=== PATIENT | female | born 1980 | race Caucasian/White ===

== ENCOUNTER 2017-07-28 13:50 | Inpatient (IN) | payer OTHER ==
[~2017-07-28] VITALS: Ht 162.6 cm; Wt 69.3 kg
[2017-07-28 16:00] VITALS: BP 143/82; PULSE 80; RESP 15; TEMP 98.3; O2SAT 94
[2017-07-28 17:00] VITALS: BP 126/70; PULSE 81; RESP 18; TEMP 98.3; O2SAT 94
[2017-07-28 18:00] VITALS: BP 132/77; PULSE 95; RESP 19; TEMP 98.2; O2SAT 95
[2017-07-28] MEDS ORDERED: MORPHINE SULFATE 4 MG/ML INJ IV PUSH PRN (18:00)
[2017-07-28] MEDS ORDERED: SENNOSIDES 8.6 MG TAB PO PRN (18:00)
[2017-07-28] MEDS ORDERED: MAGNESIUM HYDROXIDE SUSP 30 ML CUP PO PRN (18:00)
[2017-07-28] MEDS ORDERED: ONDANSETRON HCL 4 MG/2 ML VIAL IV PUSH PRN (18:00)
[2017-07-28] MEDS ORDERED: ACETAMINOPHEN 325 MG TAB PO PRN (18:00)
[2017-07-28] MEDS ORDERED: DEXTROSE 50% IN WATER 50 ML VIAL(D50) IV PUSH PRN ×2 (18:00→19:30)
[2017-07-28] MEDS ORDERED: GLUCAGON 1 MG/ML VIAL OTHER PRN ×3 (18:00→19:30)
[2017-07-28] MEDS ORDERED: CHLORHEXIDINE GLUCONATE 2 % 1 PACK (2 CLOTHS) TOP PRN (18:00)
[2017-07-28] MEDS ORDERED: BISACODYL 10 MG SUPP RECTAL PRN (18:00)
[2017-07-28] MEDS ORDERED: LACTULOSE SYRUP 20 GM/30 ML CUP PO PRN (18:00)
[2017-07-28] MEDS ORDERED: LABETALOL HCL 100 MG/20 ML VIAL IV PUSH PRN (18:00)
[2017-07-28] MEDS ORDERED: SODIUM CHLORIDE 0.9% FLUSH 10 ML FLUSH IV FLUSH PRN ×3 (18:00→19:30)
[2017-07-28] MEDS: ARTIFICIAL TEARS OPTH SOLN 15 ML BTL EACH EYE SCH (18:00)
[2017-07-28] MEDS ORDERED: NURSING INFORMATION XX SCH (18:00)
[2017-07-28] MEDS ORDERED: niCARdipine INJ 25 MG in SODIUM CHLOR 0.9% 250 ML INJ 240 ML IV PRN (18:00)
[2017-07-28] MEDS: SODIUM CHLOR 0.9% 1000 ML INJ 1,000 ML IV SCH ×2 (18:00→19:24)
[2017-07-28] MEDS ORDERED: RESP: ALBUTEROL 2.5 MG/3 ML NEB (PRN) INH (18:00)
--- NOTE | 2017-07-28 18:03 | RADRPT ---
EXAM DATE/TIME: 07/28/2017 17:50 [facility] COMPARISON: No previous studies available for comparison. INDICATIONS : Stroke alert, right side numbness and right facial droop. RADIATION DOSE: 52.83 CTDIvol (mGy) This report was called by Dr. English to Dr. Franco at 6 PM MEDICAL HISTORY : None SURGICAL HISTORY : None. ENCOUNTER: Initial ACUITY: 1 day PAIN SCALE: 0/10 LOCATION: cranial TECH NOTE: call Dr Franco [phone] TECHNIQUE: Multiple contiguous axial images were obtained of the head. Using automated exposure control and adj ustment of the mA and/or kV according to patient size, radiation dose was kept as low as reasonably a chievable to obtain optimal diagnostic quality images. DICOM format image data is available electro nically for review and comparison. FINDINGS: CEREBRUM: The ventricles are normal for age. No evidence of midline shift, mass lesion, hemorrhage or acute in farction. No extra-axial fluid collections are seen. POSTERIOR FOSSA: The cerebellum and brainstem are intact. The 4th ventricle is midline. The cerebellopontine angle i s unremarkable. EXTRACRANIAL: The visualized portion of the orbits is intact. SKULL: The calvaria is intact. No evidence of skull fracture. CONCLUSION: Negative noncontrast head CT. Artie English MD on July 28, 2017 at 17:59 Board Certified Radiologist. This report was verified electronically.
--- NOTE | 2017-07-28 18:04 | HHI.HP ---
HPI Service Critical Care Medicine Primary Care Physician Unknown Admission Diagnosis Diagnosis: (1) Pineal gland cyst Diagnosis: Principal (2) Facial droop Diagnosis: Principal (3) History of factor V Leiden mutation Diagnosis: Principal Chief Complaint: Right-sided weakness, facial droop Travel History International Travel<30 Days: No Contact w/Intl Traveler <30 Da: No Traveled to Known Affected Are: No History of Present Illness This is a 37-year-old female. Date of admission 07/28/2017. This is a transfer from [facility]. Past history includes pineal cyst and factor V Leiden. She is recently started on cyclobenzaprine 5 mg at night due to right -sided weakness and treat muscle spasms. She originally presented to [facility] with acute onset after waking up this morning of "right-sided weakness along with dizziness, vision changes involving the left lateral vision clements and facial droop. Also complaining of generalized by frontal headaches and neck stiffness. Denies chest pain, abdominal pain, nausea or vomiting. BMP/CBC and coags within normal limits at [facility]. Document the patient presented with intermittent right facial motor dysfunction spasms. Exam revealed intermittent inability to open right eye alternating with normal facial motor exam. CT brain at [facility] revealed pineal cyst 10 mm with no acute findings. MRI was not available for further evaluation plans are made to transfer the patient [facility] Review of Systems Constitutional: DENIES: Fever, Weight gain, Weight loss Endocrine: DENIES: Polydipsia, Polyuria Eyes: COMPLAINS OF: Blurred vision, Vision loss Ears, nose, mouth, throat: DENIES: Tinnitus, Hearing loss Respiratory: DENIES: Apneas Cardiovascular: DENIES: Chest pain Gastrointestinal: DENIES: Abdominal pain Genitourinary: DENIES: Urgency Musculoskeletal: DENIES: Joint pain Integumentary: DENIES: Abnormal pigmentation Hematologic/lymphatic: DENIES: Bruising Immunologic/allergic: DENIES: Eczema Neurologic: COMPLAINS OF: Headache, Localized weakness, Poor Balance, DENIES: Abnormal gait, Seizures Psychiatric: COMPLAINS OF: Confusion, DENIES: Anxiety, Depression Past Family Social History Allergies: Coded Allergies: No Known Allergies (Unverified , 07/28/17) Past Medical History Factor V Leiden Pineal cyst Past Surgical History Appendectomy Reported Medications Cyclobenzaprine 5 mg at night Active Ordered Medications Reviewed in EMR Family History Sister with history of CVA at age 27 with factor V Leiden Social History Denies tobacco, alcohol or illicit drug use Physical Exam Physical Exam GENERAL: 37-year-old female currently resting in bed in no acute distress on room air SKIN: Warm and dry. No rash HEAD: Atraumatic. Normocephalic. EYES: Pupils equal and round about 3 mm bilaterally and reactive. No scleral icterus. No injection or drainage. ENT: No nasal bleeding or discharge. Mucous membranes pink and moist. NECK: Trachea midline. No JVD. CARDIOVASCULAR: Regular rate and rhythm. S1, S2 predose for without murmur RESPIRATORY: Clear to auscultation. Breath sounds equal bilaterally. GASTROINTESTINAL: Abdomen soft, non-tender, nondistended. Hypoactive bowel sounds are appreciated MUSCULOSKELETAL: Extremities without significant peripheral edema. No obvious deformities. NEUROLOGICAL: Awake and alert. Right facial droop. Intermittent expressive aphasia. Right upper extremity strength 4-5. Right lower, left upper and lower extremity 5 out of 5. DTRs essentially 2 out of 4 upper and lowers. Positive pronator drift on right. Dysdiadochokinesis. Gait was noticed muscle strength in the arms and legs. Normal speech. Septic Shock Reassessment Septic shock perfusion: reassessment completed Caprini VTE Risk Assessment Caprini VTE Risk Assessment: Mod/High Risk (score >= 2) Caprini Risk Assessment Model Point Value = 1 Point Value = 2 Point Value = 3 Point Value = 5 Age 41-60 Minor surgery BMI > 25 kg/m2 Swollen legs Varicose veins or History of unexplained or recurrent spontaneous Oral contraceptives or hormone replacement Sepsis (< 1 month) Serious lung disease, including pneumonia (< 1 month) Abnormal pulmonary function Acute myocardial infarction Congestive heart failure (< 1 month) History of inflammatory bowel disease Medical patient at bed rest Age 61-74 Arthroscopic surgery Major open surgery (> 45 min) Laparoscopic surgery (> 45 min) Malignancy Confined to bed (> 72 hours) Immobilizing plaster cast Central venous access Age >= 75 History of VTE Family history of VTE Factor V Leiden Prothrombin [id number] Lupus anticoagulant Anticardiolipin antibodies Elevated serum homocysteine Heparin-induced thrombocytopenia Other congenital or acquired thrombophilia Stroke (< 1 month) Elective arthroplasty Hip, pelvis, or leg fracture Acute spinal cord injury (< 1 month) Prophylaxis Regimen Total Risk Factor Score Risk Level Prophylaxis Regimen 0-1 Low Early ambulation 2 Moderate Order ONE of the following: *Sequential Compression Device (SCD) *Heparin 5000 units SQ BID 3-4 Higher Order ONE of the following medications: *Heparin 5000 units SQ TID *Enoxaparin/Lovenox 40 mg SQ daily (WT < 150 kg, CrCl > 30 mL/min) *Enoxaparin/Lovenox 30 mg SQ daily (WT < 150 kg, CrCl > 10-29 mL/min) *Enoxaparin/Lovenox 30 mg SQ BID (WT < 150 kg, CrCl > 30 mL/min) AND/OR *Sequential Compression Device (SCD) 5 or more Highest Order ONE of the following medications: *Heparin 5000 units SQ TID (Preferred with Epidurals) *Enoxaparin/Lovenox 40 mg SQ daily (WT < 150 kg, CrCl > 30 mL/min) *Enoxaparin/Lovenox 30 mg SQ daily (WT < 150 kg, CrCl > 10-29 mL/min) *Enoxaparin/Lovenox 30 mg SQ BID (WT < 150 kg, CrCl > 30 mL/min) AND *Sequential Compression Device (SCD) Assessment and Plan Assessment and Plan Neuro/Psych: Right facial droop with right upper extremity weakness CT brain/CTA head and neck revealed no acute findings Will order MRI/A brain tonight Stroke alert was called. Awaiting Dr. Franco evaluate for recommendations Holding cyclobenzaprine 5 mg at night/home medication EEG ordered CV: As needed labetalol, nicardipine drip to keep systolic blood pressure less than 220/diastolic pressure less than 120 EKG ordered Echocardiogram/lipid panel ordered Resp: Nasal cannula to maintain saturations greater than equal to 92% Incentive spirometry while awake Chest x-ray ordered GI: Currently n.p.o. Famotidine for GI prophylaxis Docusate sodium/senna 1 tablet twice daily for bowel regimen : No indication for Jorge catheter Endo: Sliding scale insulin to maintain euglycemia/every 6 hours Hemoglobin A1c ordered Renal: Creatinine currently within normal limits Monitor urine output Accurate I's and Os Heme: Factor V Leiden Unknown type. Patient is currently not on any antiplatelet or anticoagulation. Check factor V Leiden ID: Monitor for signs and stigmata of infection MSK: PT/OT/ST evaluate and treat FEN: Currently normal saline 84 cc now. BMP was normal at [facility]. All results are currently pending Access -Utilize peripheral IV. Central line if indicated Prophylaxis -GI -famotidine -DVT -SCD/holding pharmacological prophylaxis until workup complete. Level 3 admission Code Status Full code Discussed Condition With Dr. Franco/neurology. Patient. Care plan discussed and all questions answered. Chris Waddell MD Jul 28, 2017 18:04
[2017-07-28] MEDS ORDERED: IOHEXOL 350 MG/ML 10 ML VIAL (for RAD DIAG) IVCONTRAST ONE (18:12)
[2017-07-28 18:13] LABS: AUTOMATED NEUTROPHIL # 9.6 TH/MM3 (1.8-7.7); BASOPHIL # 0.1 TH/MM3 (0-0.2); BASOPHIL % 0.5 % (0.0-2.0); HEMOGLOBIN 15.7 GM/DL (11.6-15.3); LYMPH % 8.9 % (9.0-44.0); MEAN CELL VOLUME 87.5 FL (80.0-100.0); MEAN CORPUSCULAR HEMOGLOBIN 31.9 PG (27.0-34.0); MEAN PLATELET VOLUME 8.2 FL (7.0-11.0); MONO % 0.7 % (0.0-8.0); MONOCYTE # 0.1 TH/MM3 (0-0.9); NEUT % 89.9 % (16.0-70.0); PLATELET COUNT 317 TH/MM3 (150-450); RED BLOOD COUNT 4.91 MIL/MM3 (4.00-5.30); RED CELL DISTRIBUTION WIDTH 14.7 % (11.6-17.2); WHITE BLOOD COUNT 10.7 TH/MM3 (4.0-11.0)
[2017-07-28 18:19] LABS: MEAN CORPUSCULAR HGB CONC 36.5 % (32.0-36.0)
--- NOTE | 2017-07-28 18:22 | RADRPT ---
EXAM DATE/TIME: 07/28/2017 17:50 [facility] COMPARISON: No previous studies available for comparison. INDICATIONS : Stroke alert, right side numbness and right facial droop. IV CONTRAST: 68 cc Omnipaque 350 (iohexol) IV ; Cumulative dose for multiple exams. RADIATION DOSE: 9.33 CTDIvol (mGy) ; Combined studies MEDICAL HISTORY : None SURGICAL HISTORY : None. ENCOUNTER: Initial ACUITY: 1 day PAIN SCALE: 0/10 LOCATION: neck Elevated flow velocities and ICA/CCA ratios have been found to correlate with increased degrees of vessel stenosis, calculated as percentage of diameter relative to a normal segment of distal ICA/CCA. TECHNIQUE: Volumetric scanning was performed using a multirow detector CT scanner. The data was post processed with a variety of visualization algorithms including full-volume maximum intensity projection, multip lanar sliding thin-slab reformation, curved-planar reformation, and surface-rendering techniques. Us ing automated exposure control and adjustment of the mA and/or kV according to patient size, radiatio n dose was kept as low as reasonably achievable to obtain optimal diagnostic quality images. DICOM f ormat image data is available electronically for review and comparison. FINDINGS: AORTIC ARCH: There is a three-vessel origin of the great vessels from the aorta. No evidence of ostial narrowing. RIGHT CAROTID: The common carotid artery is intact. The carotid bulb has a normal configuration without ulceration o r narrowing. The internal carotid artery lumen is smooth without stenosis. The external carotid vickie ry is intact. LEFT CAROTID: The common carotid artery is intact. The carotid bulb has a normal configuration without ulceration or narrowing. The internal carotid artery lumen is smooth without stenosis. The external carotid ar saniya is intact. VERTEBRALS: The vertebral arteries have a symmetric diameter. No stenotic lesions are seen. CONCLUSION: Normal carotid and vertebral artery CTA. Artie English MD on July 28, 2017 at 18:19 Board Certified Radiologist. This report was verified electronically.
--- NOTE | 2017-07-28 18:23 | RADRPT ---
EXAM DATE/TIME: 07/28/2017 17:50 [facility] COMPARISON: No previous studies available for comparison. INDICATIONS : Stroke alert, right side numbness and right facial droop. IV CONTRAST: 68 cc Omnipaque 350 (iohexol) IV ; Cumulative dose for multiple exams. RADIATION DOSE: 9.33 CTDIvol (mGy) ; Combined studies MEDICAL HISTORY : None SURGICAL HISTORY : None. ENCOUNTER: Initial ACUITY: 1 day PAIN SCALE: 0/10 LOCATION: cranial TECHNIQUE: Volumetric scanning was performed using a multi-row detector CT scanner. The data was post processed with a variety of visualization algorithms including full volume maximum intensity projection, multi -planar sliding thin slab reformation, curved planar reformation, and surface rendering techniques. Using automated exposure control and adjustment of the mA and/or kV according to patient size, radiat ion dose was kept as low as reasonably achievable to obtain optimal diagnostic quality images. DICO M format image data is available electronically for review and comparison. FINDINGS: There is excellent visualization of the major intracranial arteries out to the second-order branch ve ssels. There is no evidence for aneurysm, vessel truncation or stenosis, and no evidence for vascula r malformation. CONCLUSION: No vessel thrombosis or other acute abnormality of the intracranial arteries. Artie English MD on July 28, 2017 at 18:20 Board Certified Radiologist. This report was verified electronically.
[2017-07-28 18:26] LABS: PROTHROMBIN TIME - PATIENT 10.3 SEC (9.8-11.6)
[2017-07-28 18:33] LABS: TROPONIN I LESS THAN 0.02 NG/ML (0.02-0.05)
[2017-07-28 19:00] VITALS: BP 117/75; PULSE 73; RESP 17; TEMP 98.2; O2SAT 93
[2017-07-28] MEDS ORDERED: niCARdipine INJ 25 MG in SODIUM CHLOR 0.9% 250 ML INJ 250 ML IV PRN (19:00)
--- NOTE | 2017-07-28 19:43 | MB ---
cc: Cole Franco MD, PhD DATE: 07/28/2017 REASON FOR CONSULTATION: Stroke alert. HISTORY OF PRESENT ILLNESS: Ms. Bryson is a very nice 37-year-old woman who has a history of factor V gene mutation who also has a history of a pineal cyst which was found last September. She has a history of severe migraine headaches, which have auras, mainly visual auras, but occasionally would develop unilateral tingling. She was transferred from [facility] for the purpose of obtaining an MRI of the brain as she states the MRI unit they was nonfunctional. She began having episodes this morning around 11:00 where she suddenly gets left facial weakness, right-sided weakness as well. They would come and go, lasting 10-15 minutes, then resolve. She has had several of these throughout the course of the day. A stroke alert was therefore called. CURRENT MEDICATIONS: 1. Pepcid. 2. Lipitor. 3. Patt-Colace. 4. Tylenol. 5. Celina. 6. Morphine as needed. NEUROLOGICAL EXAMINATION: VITAL SIGNS: Blood pressure is 132/77, pulse is 95, respiratory rate is 19, temperature 98.2 degrees. HIGHER CORTICAL FUNCTION: Alert, oriented x 3. Speech is normal. CRANIAL NERVES: She has got, at the beginning of this exam, left facial weakness which appeared to be mainly a lower motor neuron process. She is weak in the right side at 4+/5 for the arm and leg. The extraocular movements are intact, including vertical gaze and upgaze. Pupils equal and reactive. Tongue protrudes midline. Facial sensation normal. Speech is slightly dysarthric. Reflexes are symmetric. These symptoms did resolve throughout the course of the exam. DIAGNOSTIC STUDIES: She did have a CT of the brain: No acute changes present. I did review this as in the low area of attenuation about the tectum, probably related to the cyst. She has a CTA of the head which is normal. No thrombosis. The basilar artery, particularly was normal. Neck CTA was also normal. LABORATORY DATA: The white count is 10,700; hemoglobin 15.7; hematocrit 43%; platelet count 317,000. The PT is 10.3, INR 1, aPTT 26.5. Sodium is 138, potassium 4.3, chloride 103. The BUN is less than 3, creatinine 0.7, glucose 134. CPK is 60. Beta hCG less than 1. IMPRESSION: Episodic symptoms which are referable to the brainstem area with left facial weakness, right-sided weakness. This may be neurologic migraine such as basilar artery migraine. Alternatively crescendo transient ischemic attacks are possible, especially with her history of factor V Leiden gene mutation. The other possibility would be the pineal cyst exerting intermittent pressure; however, I think this would be less likely. She does not have any findings suggestive of Parinaud's syndrome and she has preserved upgaze, which would be against significant pressure of the cyst on the tectum. RECOMMENDATION: I would like to start the patient on IV heparin because of her factor V Leiden gene mutation for the possibility of TIA, also start antimigraine therapy with gabapentin. I would also like to get a stat brain MRI to be sure the cyst is not putting pressure on the brainstem, although for the reasons above, I think this would be a less likely etiology, although needs to be ruled out. Cole Franco MD, PhD IVETTE/ALEX , 07:24 PM , 07:42 PM
[2017-07-28 20:00] VITALS: BP 117/63; PULSE 74; RESP 13; TEMP 97.5; O2SAT 93
[2017-07-28] MEDS: SODIUM CHLORIDE 0.9% FLUSH 10 ML FLUSH IV FLUSH SCH ×3 (21:00)
[2017-07-28] MEDS ORDERED: INSULIN ASPART SUPPLEMENTAL SCALE SQ SCH ×2 (21:00)
[2017-07-28] MEDS ORDERED: GADODIAMIDE PF 287 MG/ML 5 ML VIAL (for RAD MRI) IVCONTRAST ONE (21:31)
[2017-07-28 22:00] VITALS: BP 113/62; PULSE 72; RESP 19; TEMP 97.6; O2SAT 95
--- NOTE | 2017-07-28 22:25 | RADRPT ---
EXAM DATE/TIME: 07/28/2017 21:21 [facility] COMPARISON: No previous studies available for comparison. INDICATIONS : Pineal cyst, possible brainstem compression. CONTRAST: 13 cc Omniscan (gadodiamide) IV MEDICAL HISTORY : Factor 5, Pineal cyst. SURGICAL HISTORY : Tubal ligation. Appendectomy. Right hand sx. ENCOUNTER: Initial ACUITY: 1 day PAIN SCORE: 4/10 LOCATION: Bilateral cranial TECHNIQUE: Multiplanar, multisequence MRI of the brain was performed both prior to and following the administrat ion of paramagnetic contrast. FINDINGS: CEREBRUM: Nonenhancing thin-walled midline cyst posterior to the tectum and in between the mammary bodies noted , measures 12 x 15 x 18 mm in size. There is no signal abnormalities or perceptible significant mass effect on adjacent structures. The ventricles are normal. No evidence of midline shift, solid mass le ruddy, hemorrhage or acute infarction. No extraaxial fluid collections are seen. The pituitary gland and suprasellar cistern are normal in configuration. WHITE MATTER: No significant signal abnormalities are seen in the white matter. POSTERIOR FOSSA: The cerebellum and brainstem are intact. The 4th ventricle is midline. The cerebellopontine angle is unremarkable. The cerebellar tonsils are normal in position. DIFFUSION IMAGING: No focal areas of restricted diffusion are seen. No evidence of acute infarction. EXTRACRANIAL: The visualized portions of the orbits and paranasal sinuses are unremarkable. POST-CONTRAST: No abnormal areas of parenchymal or dural enhancement. No evidence of blood-brain barrier breakdown. CONCLUSION: 1. No bleed, acute infarct or other acute intracranial abnormality. 2. Thin-walled benign-appearing pineal cyst without signal changes or significant mass effect on zohra cent structures. This is thought to be acutely noncontributory. The lesion does warrant surveillance however, and a 6 month followup brain MRI is suggested. Artie English MD on July 28, 2017 at 22:13 Board Certified Radiologist. This report was verified electronically.
[2017-07-28] MEDS: INSULIN ASPART SUPPLEMENTAL SCALE SQ SCH (22:30)
[2017-07-28] MEDS: DOCUSATE SODIUM 50 MG/SENNA 8.6 MG TAB PO SCH (22:30)
[2017-07-28] MEDS: FAMOTIDINE 20 MG/2 ML VIAL IV PUSH SCH (22:30)
[2017-07-28] MEDS: GABAPENTIN 300 MG CAP PO SCH (22:30)
[2017-07-28] MEDS: ATORVASTATIN 10 MG TAB PO SCH (22:30)
[2017-07-28] MEDS: DEXAMETHASONE SOD PHOS 4 MG/ML VIAL IV PUSH SCH (22:30)
[2017-07-29] VITALS (13 sets, daily range): BP systolic 105–131; BP diastolic 58–67; PULSE 54–85; RESP 14–23; TEMP 97.4–98.2; O2SAT 93–99
[2017-07-29] MEDS: HEPARIN-D5W 25,000 U/250 ML 250 ML IV PRN ×2 (00:09→23:46)
[2017-07-29] MEDS: CHLORHEXIDINE GLUCONATE 2 % 1 PACK (2 CLOTHS) TOP SCH (04:00)
[2017-07-29] MEDS: DEXAMETHASONE SOD PHOS 4 MG/ML VIAL IV PUSH SCH ×3 (06:06→21:56)
[2017-07-29] MEDS: SODIUM CHLOR 0.9% 1000 ML INJ 1,000 ML IV SCH ×3 (06:07→17:30)
--- NOTE | 2017-07-29 07:27 | HHI.PR ---
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 She has history of factor 5 leiden gene mutation she states only at one allele. Plan continue iv heparin for now as well as migraine therapy (gapapentin, steroids) consult hematology regarding history of factor 5 leiden. Will also check full hypercoag panel MRV brain to be sure is no venous sinus thrombosis consult neurosurgery regarding pineal cyst. Diagnosis/Plan: Subjective Subjective Comments No acute events reported She states she had had no further episodes of left face and right hemibody weakness since heparin started Active Medications Current Medications Medications (Trade) Dose Ordered Sig/Lora Route Start Time Stop Time Status Last Admin Sodium Chloride 1,000 ml @ 84 mls/hr [id number] IV 07/28/17 17:49 07/29/17 06:07 (NS Flush) 2 ml UNSCH PRN IV FLUSH 07/28/17 18:00 (NS Flush) 2 ml BID IV FLUSH 07/28/17 21:00 07/28/17 21:00 (Tylenol) 650 mg Q6H PRN PO 07/28/17 18:00 (Joanna 5-325 Mg) 1 tab Q4H PRN PO 07/28/17 18:00 (Morphine Inj) 2 mg Q2H PRN IV PUSH 07/28/17 18:00 (Pepcid Inj) 20 mg Q12HR IV PUSH 07/28/17 21:00 07/28/17 22:30 (Tears Naturale Opth Soln) 1 drop TID EACH EYE 07/28/17 18:00 (Zofran Inj) 4 mg Q6H PRN IV PUSH 07/28/17 18:00 (Albuterol Neb) 2.5 mg Q2HR NEB PRN INH 07/28/17 18:00 ([facility] Information) 1 [id number] XX 07/28/17 18:00 07/28/17 21:00 (Chlorhexidine 2% Cloth) 3 pack Taper DAILY@04 TOP 07/29/17 04:00 07/25/18 03:59 (Chlorhexidine 2% Cloth) 3 pack UNSCH PRN TOP 07/28/17 18:00 (Patt-Colace) 1 tab BID PO 07/28/17 21:00 07/28/17 22:30 (Milk Of Magnesia Liq) 30 ml Q12H PRN PO 07/28/17 18:00 (Senokot) 17.2 mg Q12H PRN PO 07/28/17 18:00 (Dulcolax Supp) 10 mg DAILY PRN RECTAL 07/28/17 18:00 (Lactulose Liq) 30 ml DAILY PRN PO 07/28/17 18:00 (Trandate Inj) 10 mg Q2H PRN IV PUSH 07/28/17 18:00 (Lipitor) 10 mg HS PO 07/28/17 21:00 07/28/17 22:30 Nicardipine HCl 25 mg/Sodium Chloride 260 ml @ 50 mls/hr TITRATE PRN IV 07/28/17 19:00 (NS Flush) 2 ml BID IV FLUSH 07/28/17 21:00 (NS Flush) 2 ml UNSCH PRN IV FLUSH 07/28/17 19:30 Sodium Chloride 1,000 ml @ 70 mls/hr [id number] IV 07/28/17 19:24 (NovoLOG SUPPLEMENTAL SCALE) 1 ACHS SQ 07/28/17 21:00 (D50w (Vial) Inj) 50 ml UNSCH PRN IV PUSH 07/28/17 19:30 (Glucagon Inj) 1 mg UNSCH PRN OTHER 07/28/17 19:30 (NS Flush) 2 ml BID IV FLUSH 07/28/17 21:00 (NS Flush) 2 ml UNSCH PRN IV FLUSH 07/28/17 19:30 (D50w (Vial) Inj) 50 ml UNSCH PRN IV PUSH 07/28/17 19:30 (Glucagon Inj) 1 mg UNSCH PRN OTHER 07/28/17 19:30 Heparin Sodium/ Dextrose 250 ml @ 8 mls/hr TITRATE PRN IV 07/28/17 19:30 07/29/17 00:09 (Neurontin) 300 mg BID PO 07/28/17 21:00 07/28/17 22:30 (Decadron Inj) 4 mg Q8HR IV PUSH 07/28/17 22:00 07/29/17 06:06 Allergies Allergies Coded Allergies No Known Allergies (Unverified07/28/17) Exam I&O / VS Vital Signs Date Time Temp Pulse Resp B/P (MAP) Pulse Ox O2 Delivery O2 Flow Rate FiO2 07/29/17 06:00 58 07/29/17 04:00 97.4 60 16 107/59 (75) 96 07/29/17 04:00 68 07/29/17 02:00 60 07/29/17 00:00 60 07/29/17 00:00 97.7 60 19 109/62 (78) 94 07/28/17 22:00 97.6 72 19 113/62 (79) 95 07/28/17 22:00 72 07/28/17 20:00 74 07/28/17 20:00 97.5 74 13 117/63 (81) 93 07/28/17 19:00 98.2 73 17 117/75 (89) 93 07/28/17 18:00 98.2 95 19 132/77 (95) 95 07/28/17 18:00 95 07/28/17 17:00 81 07/28/17 17:00 98.3 81 18 126/70 (88) 94 07/28/17 16:00 98.3 80 15 143/82 (102) 94 Exam Comments alert, speech normal Cn normal--no facial weakness MOTOR----5/5 BUE and BLE. no drift. Objective Radiology Results MRI brain-large pineal cyst without compression of tectum Micro and Labs Laboratory Tests Test 07/28/17 17:47 White Blood Count 10.7 Red Blood Count 4.91 Hemoglobin 15.7 Bedside Hemoglobin 15.6 Hematocrit 43.0 Bedside Hematocrit 46.0 Mean Corpuscular Volume 87.5 Mean Corpuscular Hemoglobin 31.9 Mean Corpuscular Hemoglobin Concent 36.5 Red Cell Distribution Width 14.7 Platelet Count 317 Mean Platelet Volume 8.2 Neutrophils (%) (Auto) 89.9 Lymphocytes (%) (Auto) 8.9 Monocytes (%) (Auto) 0.7 Eosinophils (%) (Auto) 0.0 Basophils (%) (Auto) 0.5 Neutrophils # (Auto) 9.6 Lymphocytes # (Auto) 1.0 Monocytes # (Auto) 0.1 Eosinophils # (Auto) 0.0 Basophils # (Auto) 0.1 CBC Comment AUTO DIFF Differential Comment FINAL DIFF MANUAL Platelet Estimate NORMAL Platelet Morphology Comment ENLARGED Prothrombin Time 10.3 Prothromb Time International Ratio 1.0 Activated Partial Thromboplast Time 26.5 Fibrinogen 367 Bedside Sodium 138 Bedside Potassium 4.3 Bedside Chloride 103 Bedside Blood Urea Nitrogen LESS THAN 3 Bedside Creatinine 0.7 Bedside Glucose 134 Total Creatine Kinase 60 Troponin I LESS THAN 0.02 Human Chorionic Gonadotropin, Quant LESS THAN 1 Cole Franco MD PhD Jul 29, 2017 07:27
--- NOTE | 2017-07-29 07:30 | HHI.CCPN ---
Subjective Remarks/Hospital Course This is a 37-year-old female. Date of admission 07/28/2017. This is a transfer from [facility]. Past history includes pineal cyst and factor V Leiden. She is recently started on cyclobenzaprine 5 mg at night due to right -sided weakness and treat muscle spasms. She originally presented to [facility] with acute onset after waking up this morning of "right-sided weakness along with dizziness, vision changes involving the left lateral vision clements and facial droop. Also complaining of generalized by frontal headaches and neck stiffness. Denies chest pain, abdominal pain, nausea or vomiting. BMP/CBC and coags within normal limits at [facility]. Document the patient presented with intermittent right facial motor dysfunction spasms. Exam revealed intermittent inability to open right eye alternating with normal facial motor exam. CT brain at [facility] revealed pineal cyst 10 mm with no acute findings. MRI was not available for further evaluation plans are made to transfer the patient [facility] 07/29: No acute events overnight, patient reports no right-sided weakness after IV heparin had been started. Discussed with neurology Dr. Franco. he has requested hematology and N/S input. Pineal cyst measures measures 12 x 15 x 18 mm in size, no mass-effect. MRV ordered by neurology Objective Vital Signs Date Time Temp Pulse Resp B/P (MAP) Pulse Ox O2 Delivery O2 Flow Rate FiO2 07/29/17 06:00 58 07/29/17 04:00 97.4 16 107/59 (37) 96 Result Diagram: 07/28/17 6722 Objective Remarks GENERAL: 37-year-old female currently resting in bed in no acute distress on room air SKIN: Warm and dry. No rash HEAD: Atraumatic. Normocephalic. EYES: Pupils equal and round about 3 mm bilaterally and reactive. No scleral icterus. No injection or drainage. ENT: No nasal bleeding or discharge. Mucous membranes pink and moist. NECK: Trachea midline. No JVD. CARDIOVASCULAR: Regular rate and rhythm. S1, S2 normal without murmur RESPIRATORY: Clear to auscultation. Breath sounds equal bilaterally. GASTROINTESTINAL: Abdomen soft, non-tender, nondistended. Hypoactive bowel sounds are appreciated MUSCULOSKELETAL: Extremities without significant peripheral edema. No obvious deformities. NEUROLOGICAL: Awake and alert. No facial droop. No expressive aphasia today. Normal muscle strength bilateral ext. DTRs essentially 2 out of 4 upper and lowers. No Dysdiadochokinesis. Normal speech. A/P Assessment and Plan Neuro/Psych: Right facial droop with right upper extremity weakness, now resolved TIA vs Complicated migraine CT brain/CTA head and neck revealed no acute findings MRI brain showed pineal cyst measures 12 x 15 x [address] Franco has consulted neurosurgery, MRV also ordered Stroke alert was called. Was beyond TPA window. IV heparin started by Dr. Franco due to factor V Leyden mutation On Neurontin and IV Decadron per Dr. Franco for complicated migraine Holding cyclobenzaprine 5 mg at night/home medication EEG ordered, pending CV: As needed labetalol, nicardipine drip to keep systolic blood pressure less than 220/diastolic pressure less than 120 Echocardiogram/lipid panel ordered Resp: Nasal cannula to maintain saturations greater than equal to 92% Incentive spirometry while awake Chest x-ray ordered GI: Currently n.p.o. Start regular diet Famotidine for GI prophylaxis Docusate sodium/senna 1 tablet twice daily for bowel regimen : No indication for Jorge catheter Endo: Sliding scale insulin to maintain euglycemia/every 6 hours Hemoglobin A1c ordered Renal: Creatinine currently within normal limits Monitor urine output Accurate I's and Os Heme: Factor V Leiden mutation Unknown type. Patient is currently not on any antiplatelet or anticoagulation. F/u factor V Leiden IV heparin started by Dr. Franco, hematology consulted, await recommendation ID: Monitor for signs and stigmata of infection MSK: PT/OT/ST evaluate and treat FEN: Currently normal saline 84 cc now. BMP was normal at [facility]. Access -Utilize peripheral IV. Central line if indicated Prophylaxis -GI -famotidine -DVT -SCD/IV heparin Level 3 Geovani Alva MD Jul 29, 2017 07:30
[2017-07-29] MEDS: INSULIN ASPART SUPPLEMENTAL SCALE SQ SCH ×4 (08:00→21:00)
[2017-07-29 08:07] LABS: AUTOMATED NEUTROPHIL # 6.5 TH/MM3 (1.8-7.7); BASOPHIL # 0.1 TH/MM3 (0-0.2); BASOPHIL % 1.1 % (0.0-2.0); HEMATOCRIT 40.3 % (35.0-46.0); HEMOGLOBIN 13.9 GM/DL (11.6-15.3); LYMPH % 16.5 % (9.0-44.0); LYMPHOCYTE # 1.3 TH/MM3 (1.0-4.8); MEAN CELL VOLUME 86.6 FL (80.0-100.0); MEAN CORPUSCULAR HEMOGLOBIN 29.8 PG (27.0-34.0); MEAN CORPUSCULAR HGB CONC 34.4 % (32.0-36.0); MEAN PLATELET VOLUME 8.4 FL (7.0-11.0); MONO % 2.7 % (0.0-8.0); MONOCYTE # 0.2 TH/MM3 (0-0.9); NEUT % 79.7 % (16.0-70.0); PLATELET COUNT 308 TH/MM3 (150-450); RED BLOOD COUNT 4.65 MIL/MM3 (4.00-5.30); WHITE BLOOD COUNT 8.2 TH/MM3 (4.0-11.0)
[2017-07-29 08:13] LABS: PROTHROMBIN TIME - PATIENT 10.4 SEC (9.8-11.6)
[2017-07-29 08:26] LABS: ALBUMIN 3.3 GM/DL (3.4-5.0); AST (GOT) 12 U/L (15-37); BICARBONATE 21.4 MEQ/L (21.0-32.0); BLOOD UREA NITROGEN 7 MG/DL (7-18); CHLORIDE 106 MEQ/L (98-107); CREATININE 0.67 MG/DL (0.50-1.00); GLOMERULAR FILTRATION RATE 100 ML/MIN (>89); GLUCOSE,RANDOM 123 MG/DL (74-106); MAGNESIUM 1.8 MG/DL (1.5-2.5); SODIUM (NA) 139 MEQ/L (136-145)
[2017-07-29 08:28] LABS: ALT (GPT) 21 U/L (10-53); CHOLESTEROL 200 MG/DL (120-200); PHOSPHORUS 2.9 MG/DL (2.5-4.9); TRIGLYCERIDES 107 MG/DL (42-150)
[2017-07-29 08:30] LABS: ALKALINE PHOSPHATASE 60 U/L (45-117); CHOLESTEROL/ HDL RATIO 6.04 RATIO; HDL CHOLESTEROL 33.1 MG/DL (40.0-60.0); LDL CHOLESTEROL 146 MG/DL (0-99); TOTAL BILIRUBIN ADULT 0.4 MG/DL (0.2-1.0); TOTAL PROTEIN 7.2 GM/DL (6.4-8.2)
[2017-07-29] MEDS: SODIUM CHLORIDE 0.9% FLUSH 10 ML FLUSH IV FLUSH SCH ×6 (09:00→21:00)
[2017-07-29] MEDS: ARTIFICIAL TEARS OPTH SOLN 15 ML BTL EACH EYE SCH ×3 (10:23→17:30)
[2017-07-29] MEDS: FAMOTIDINE 20 MG/2 ML VIAL IV PUSH SCH (10:23)
[2017-07-29] MEDS: DOCUSATE SODIUM 50 MG/SENNA 8.6 MG TAB PO SCH ×2 (10:23→21:54)
[2017-07-29] MEDS: GABAPENTIN 300 MG CAP PO SCH ×2 (10:23→21:54)
[2017-07-29 10:58] LABS: HEMOGLOBIN A1C 5.7 % (4.3-6.0)
--- NOTE | 2017-07-29 12:29 | MB ---
cc: Thanh ARROYO DATE: 07/29/2017 CHIEF COMPLAINT: Pineal cyst. HISTORY OF PRESENT ILLNESS: This is a 37-year-old female patient admitted to the intensive care unit because of a possible TIA. The patient has a history of factor V gene mutation and previous history of pineal cyst. The patient has been complaining of severe headaches which have been diagnosed as migrainous in the past with visual auras. She was seen at [facility] because of continued headaches and she was also noted to have some facial weakness and right-sided weakness and because of this, she was transferred to this facility to undergo MRI of the brain and further evaluation. Presently, the patient reports that she is doing well. She reports that she has been evaluated previously for a pineal cyst and seen several neurosurgeons. She has also been evaluated for her continued symptoms of tingling in the extremities and these visual auras and has seen various neurologists in the past. Neurosurgical consult was placed because of the pineal cyst. ALLERGIES: SHE HAS NO KNOWN ALLERGIES. PREVIOUS MEDICAL HISTORY: Reveals a factor V Leiden factor and pineal cyst. PAST SURGICAL HISTORY: Includes appendectomy. MEDICATIONS: Include cyclobenzaprine at night. FAMILY HISTORY: Positive for a sister with history of a stroke at the age of 27 because of her factor V. SOCIAL HISTORY: Reveals that she denies use of tobacco, alcohol or illicit drug use. PHYSICAL EXAMINATION: VITAL SIGNS: Blood pressure of 115/67, respiratory rate of 23, pulse of 79, temperature of 97.9 and pulse oximetry of 93. HEENT: Unremarkable. NECK: Supple with carotid pulses bilaterally. CHEST: Symmetric. LUNGS: Clear. HEART: Shows a regular rhythm with normal heart sounds. ABDOMEN: Soft. EXTREMITIES: Clear. NEUROLOGIC: She is alert and awake. She follows commands well. Speech is clear. She is oriented x 3. Her affect appears to be normal. She tends to grimace on the right side of the face. Cranial nerves 2-12 are intact. Motor exam is 5+/5. Sensory system is intact to touch. Deep tendon reflexes are 1+. IMAGING STUDIES: Review of an MRI of the brain showed what appears to be a pineal cyst about 1 cm. No significant pressure on the adjacent structures are seen. Previous MRI were also reviewed, appear to be of similar symmetry. OVERALL IMPRESSION: That of a benign pineal cyst. I do not believe that her present symptomatology is related to the cyst at the present time, RECOMMENDATIONS: There is no clear need for surgical intervention for the pineal cyst. She should be followed by neurology because of her symptoms and possible complicated migraines. Thanh BARBER/ALEX , 11:57 AM , 12:28 PM [email or web address]
[2017-07-29] MEDS ORDERED: GADODIAMIDE PF 287 MG/ML 20 ML VIAL (for RAD MRI) IVCONTRAST ONE (14:19)
--- NOTE | 2017-07-29 14:36 | RADRPT ---
EXAM DATE/TIME: 07/29/2017 13:48 COMPARISON: MRI BRAIN W & W/O CONTRAST, July 28, 2017, 21:21. INDICATIONS : Venous sinus thrombosis CONTRAST: 20 cc Omniscan (gadodiamide) IV MEDICAL HISTORY : Factor 5 SURGICAL HISTORY : Tubal ligation. Appendectomy. ENCOUNTER: Initial ACUITY: 1 day PAIN SCORE: 0/10 LOCATION: cranial FINDINGS: The main dural sinuses are all patent. No thrombus is seen. CONCLUSION: No venous dural sinus thrombosis. Artie Zamarripa MD on July 29, 2017 at 14:31 Board Certified Radiologist. This report was verified electronically.
--- NOTE | 2017-07-29 19:09 | MG ---
cc: Cole Franco MD, PhD Cole Franco MD PhD TEST #[id number] TECHNIQUE: This is a 21-channel EEG. DESCRIPTION: Background rhythm reveals a symmetrical alpha rhythm. Frequency is 8-10 Hz, amplitude is 20-30 microvolts. During drowsiness, there is mild slowing in the theta range. There is some sleep activity identified in terms of vertex sharp waves and sleep spindles are present. There are no epileptiform features. Activation was not performed. INTERPRETATION: Normal electroencephalogram in both the awake and sleep state. Cole Franco MD, PhD IVETTE/ , 06:51 PM , 07:08 PM
[2017-07-29] MEDS: ATORVASTATIN 10 MG TAB PO SCH (21:54)
[2017-07-29] MEDS: FAMOTIDINE 20 MG TAB PO SCH (21:54)
[2017-07-30] VITALS (10 sets, daily range): BP systolic 111–124; BP diastolic 65–70; PULSE 47–83; RESP 12–29; TEMP 97.7–98; O2SAT 94–100
[2017-07-30] MEDS: CHLORHEXIDINE GLUCONATE 2 % 1 PACK (2 CLOTHS) TOP SCH (04:00)
[2017-07-30] MEDS: SODIUM CHLOR 0.9% 1000 ML INJ 1,000 ML IV SCH ×3 (05:34→10:49)
[2017-07-30] MEDS: DEXAMETHASONE SOD PHOS 4 MG/ML VIAL IV PUSH SCH (05:39)
--- NOTE | 2017-07-30 07:42 | MB ---
cc: Susanna Sanchez MD DATE: 07/29/2017 CHIEF COMPLAINT: 1. Possible stroke. 2. History of heterozygous factor V Leiden. 3. Hypercoagulable workup. HISTORY OF PRESENT ILLNESS: Ms. Bryson is a 37-year-old lady with a history of pineal cyst and factor V Leiden heterozygosity who was admitted to the hospital on 07/28/2017 as a transfer from [facility] in [place]. She had noticed right-sided facial droop and right-sided weakness, as well as left lateral vision clements changes. She also developed frontal headache and neck stiffness. She was transferred to [facility] for further evaluation and management. She has been evaluated by the neurology service as well as the neurosurgery service. Head imaging includes a neck CTA, which revealed normal carotid and vertebral arteries. Head CTA which showed no vessel thrombosis or other acute abnormality of the intracranial arteries. Head CT with negative noncontrasted CT. Brain MRI with no bleed, acute infarct or other acute intracranial abnormality. Thin wall benign appearing pineal cyst without significant changes or significant mass effect from adjacent structures. This is thought to be acutely noncontributory. The lesion does warrant surveillance and the radiologist recommended a month followup brain MRI. Head MR venography showed no venous dural sinus thrombosis. Laboratory studies with a creatinine of 0.67, a total bilirubin 0.4, AST 12, ALT 21, alkaline phosphatase is 60, total protein is 7.2 and albumin is 3.3. White blood cell count 8.2, hemoglobin is 13.9, and platelet count is 308,000 with a normal differential. Neurosurgery service consulted for further recommendations on further management of pineal cyst and they already said that there is no clear need for surgical intervention and that the pineal cyst is likely not the cause of her current symptoms. All other ROS negative. PAST MEDICAL HISTORY: 1. Pineal cyst. 2. Heterozygous Factor V Leiden. PAST SURGICAL HISTORY: 1. Appendectomy. 2. Tubal ligation. 3. Right index finger reattachment after an accident. SOCIAL HISTORY: The patient is an active smoker. She has smoked 1-1/2 packs a day for many years. She has past heavy alcohol use; however, she has using any alcohol in the past several years. She has a good support system with family. FAMILY HISTORY: She reports a significant family history of stroke and vascular disease. She reports that her sister had a stroke at age 27 and at that point in time, her sister was found to be heterozygous for factor V Leiden. She also reports that at the time of her stroke her sister was obese, on control with active tobacco abuse as well. ALLERGIES: SHE DENIES ANY ALLERGIES. HOME MEDICATIONS: She denies any home medications. PHYSICAL EXAMINATION: GENERAL: Well-developed, well-nourished lady, in no distress. NECK: Supple with no palpable lymphadenopathy. CARDIOVASCULAR: Regular rate and rhythm, no murmurs. RESPIRATORY: Clear to auscultation bilaterally. ABDOMEN: Soft, nontender, nondistended. Bowel sounds present. EXTREMITIES: No edema. PSYCHIATRIC: Appropriate mood and affect. NEUROLOGIC: Within some slight drooping of the right side of the face. ASSESSMENT AND PLAN: Possible transient ischemic attack and stroke with no abnormalities that are present in the vasculature of the neck and the brain upon imaging. She has already had a hypercoagulable workup ordered including evaluation for factor V Leiden mutation, protein C activity, protein S activity, antiphospholipid antibody panel. For completeness , we will also order prothrombin gene mutation as well as antithrombin III activity. The patient reports in the past that she has been diagnosed with factor V Leiden heterozygosity. Studies have indicated no statistically significant increased risk of arterial thromboembolism in factor V Leiden carriers compared with noncarriers. No association has been found between factor V Leiden and arterial thromboembolic events have been shown. In these meta analyses, she majority of the patient's are heterozygotes. At this point in time, the finding of heterozygous factor V Leiden mutation in a patient with an unexplained arterial thrombotic disease should not lead to any treatment changes from standard therapy and the patient experiencing a noncardiogenic thrombotic event. If the neurology service deems it so, antiplatelet therapy would be the appropriate choice in this patient. Thank you for this consultation. Inpatient hematology service will continue to follow. MD HOWARD Carrington/ALEX , 05:44 AM , 07:41 AM DEVYN
--- NOTE | 2017-07-30 07:58 | HHI.PR ---
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 Plan stop iv heparin and start aspirin 325 mg daily increase gabapentin for migraine stop decadron. Diagnosis/Plan: Subjective Subjective Comments No acute events reported Pt has had intermittent left facial weakness throughout yesterday but no right hemiparesis Neurosurgery and hematology consults appreciated Active Medications Current Medications Medications (Trade) Dose Ordered Sig/Lora Route Start Time Stop Time Status Last Admin Sodium Chloride 1,000 ml @ 84 mls/hr [id number] IV 07/28/17 17:49 07/30/17 05:34 (NS Flush) 2 ml UNSCH PRN IV FLUSH 07/28/17 18:00 (NS Flush) 2 ml BID IV FLUSH 07/28/17 21:00 07/29/17 21:00 (Tylenol) 650 mg Q6H PRN PO 07/28/17 18:00 (Randolph 5-325 Mg) 1 tab Q4H PRN PO 07/28/17 18:00 (Morphine Inj) 2 mg Q2H PRN IV PUSH 07/28/17 18:00 (Tears Naturale Opth Soln) 1 drop TID EACH EYE 07/28/17 18:00 07/29/17 17:30 (Zofran Inj) 4 mg Q6H PRN IV PUSH 07/28/17 18:00 (Albuterol Neb) 2.5 mg Q2HR NEB PRN INH 07/28/17 18:00 ([facility] Nursing Information) 1 [id number] XX 07/28/17 18:00 07/28/17 21:00 (Chlorhexidine 2% Cloth) 3 pack Taper DAILY@04 TOP 07/29/17 04:00 07/25/18 03:59 (Chlorhexidine 2% Cloth) 3 pack UNSCH PRN TOP 07/28/17 18:00 (Patt-Colace) 1 tab BID PO 07/28/17 21:00 07/29/17 21:54 (Milk Of Magnesia Liq) 30 ml Q12H PRN PO 07/28/17 18:00 (Senokot) 17.2 mg Q12H PRN PO 07/28/17 18:00 (Dulcolax Supp) 10 mg DAILY PRN RECTAL 07/28/17 18:00 (Lactulose Liq) 30 ml DAILY PRN PO 07/28/17 18:00 (Trandate Inj) 10 mg Q2H PRN IV PUSH 07/28/17 18:00 (Lipitor) 10 mg HS PO 07/28/17 21:00 07/29/17 21:54 Nicardipine HCl 25 mg/Sodium Chloride 260 ml @ 50 mls/hr TITRATE PRN IV 07/28/17 19:00 (NS Flush) 2 ml BID IV FLUSH 07/28/17 21:00 (NS Flush) 2 ml UNSCH PRN IV FLUSH 07/28/17 19:30 Sodium Chloride 1,000 ml @ 70 mls/hr [id number] IV 07/28/17 19:24 (NovoLOG SUPPLEMENTAL SCALE) 1 ACHS SQ 07/28/17 21:00 (D50w (Vial) Inj) 50 ml UNSCH PRN IV PUSH 07/28/17 19:30 (Glucagon Inj) 1 mg UNSCH PRN OTHER 07/28/17 19:30 (NS Flush) 2 ml BID IV FLUSH 07/28/17 21:00 (NS Flush) 2 ml UNSCH PRN IV FLUSH 07/28/17 19:30 (D50w (Vial) Inj) 50 ml UNSCH PRN IV PUSH 07/28/17 19:30 (Glucagon Inj) 1 mg UNSCH PRN OTHER 07/28/17 19:30 Heparin Sodium/ Dextrose 250 ml @ 8 mls/hr TITRATE PRN IV 07/28/17 19:30 07/29/17 23:46 (Neurontin) 300 mg BID PO 07/28/17 21:00 07/29/17 21:54 (Decadron Inj) 4 mg Q8HR IV PUSH 07/28/17 22:00 07/30/17 05:39 (Pepcid) 20 mg BID PO 07/29/17 21:00 07/29/17 21:54 Allergies Allergies Coded Allergies No Known Allergies (Unverified07/28/17) Exam I&O / VS Vital Signs Date Time Temp Pulse Resp B/P (MAP) Pulse Ox O2 Delivery O2 Flow Rate FiO2 07/30/17 06:00 54 07/30/17 04:00 98.0 50 12 94 07/30/17 04:00 50 07/30/17 02:00 54 07/30/17 00:00 97.9 50 12 94 07/30/17 00:00 52 07/29/17 22:50 97 21 07/29/17 20:00 54 07/29/17 20:00 98.2 66 17 95 07/29/17 18:00 62 07/29/17 16:00 98.2 65 14 105/58 (74) 98 07/29/17 16:00 59 07/29/17 14:00 70 07/29/17 12:00 97.7 70 17 131/64 (86) 95 07/29/17 12:00 70 07/29/17 10:00 85 07/29/17 08:00 97.9 79 23 115/67 (83) 93 07/29/17 08:00 79 Exam Comments alert, speech normal Cn normal--except mild left facial weakness MOTOR----5/5 BUE and BLE. no drift. Objective Micro and Labs Laboratory Tests Test 07/29/17 08:11 07/29/17 14:40 07/29/17 21:10 07/30/17 02:00 Activated Partial Thromboplast Time 28.9 27.0 44.0 Test 07/30/17 07:09 Cole Franco MD PhD Jul 30, 2017 07:58
[2017-07-30] MEDS: INSULIN ASPART SUPPLEMENTAL SCALE SQ SCH (08:00)
[2017-07-30] MEDS: SODIUM CHLORIDE 0.9% FLUSH 10 ML FLUSH IV FLUSH SCH ×2 (09:00→21:00)
[2017-07-30] MEDS: ARTIFICIAL TEARS OPTH SOLN 15 ML BTL EACH EYE SCH ×3 (09:41→17:55)
[2017-07-30] MEDS: DOCUSATE SODIUM 50 MG/SENNA 8.6 MG TAB PO SCH (09:41)
[2017-07-30] MEDS: FAMOTIDINE 20 MG TAB PO SCH ×2 (09:41→21:28)
[2017-07-30] MEDS: ASPIRIN 325 MG TAB PO SCH (09:42)
--- NOTE | 2017-07-30 12:15 | HHI.PR ---
Subjective Remarks Follow-up Basilar migraine July 30, 2017-patient seen and examined, still with head pressure but denies any Headache or visual changes. No photophobia/nasal congestion however +tears of the eyes. +left sided facial drooping; questionable right facial palsy. by the bedside Objective Vitals Vital Signs Date Time Temp Pulse Resp B/P (MAP) Pulse Ox O2 Delivery O2 Flow Rate FiO2 07/30/17 06:00 54 07/30/17 04:00 98.0 50 12 94 07/30/17 04:00 50 07/30/17 02:00 54 07/30/17 00:00 97.9 50 12 94 07/30/17 00:00 52 07/29/17 22:50 97 21 07/29/17 20:00 54 07/29/17 20:00 98.2 66 17 95 07/29/17 18:00 62 07/29/17 16:00 98.2 65 14 105/58 (74) 98 07/29/17 16:00 59 07/29/17 14:00 70 07/29/17 12:00 97.7 70 17 131/64 (86) 95 07/29/17 12:00 70 I/O 07/29/17 07/29/17 07/29/17 07/30/17 07/30/17 07/30/17 07:00 15:00 23:00 07:00 15:00 23:00 Intake Total 240 ml Balance 240 ml Intake Oral 240 ml # Voids 1 4 3 # Bowel Movements 0 Result Diagram: 07/29/17 0740 07/29/17 0740 Imaging Last Impressions Head/Brain Mag Res Venography 07/29/17 0000 Signed Impressions: Service Date/Time: Saturday, July 29, 2017 13:48 - CONCLUSION: No venous dural sinus thrombosis. Artie Zamarripa MD Neck CTA 07/28/17 0000 Signed Impressions: Service Date/Time: Friday, July 28, 2017 17:50 - CONCLUSION: Normal carotid and vertebral artery CTA. Artie English MD Head CTA 07/28/17 0000 Signed Impressions: Service Date/Time: Friday, July 28, 2017 17:50 - CONCLUSION: No vessel thrombosis or other acute abnormality of the intracranial arteries. Artie English MD Head CT 07/28/17 0000 Signed Impressions: Service Date/Time: Friday, July 28, 2017 17:50 - CONCLUSION: Negative noncontrast head CT. Artie English MD Brain MRI 07/28/17 0000 Signed Impressions: Service Date/Time: Friday, July 28, 2017 21:21 - CONCLUSION: 1. No bleed, acute infarct or other acute intracranial abnormality. 2. Thin-walled benign-appearing pineal cyst without signal changes or significant mass effect on adjacent structures. This is thought to be acutely noncontributory. The lesion does warrant surveillance however, and a 6 month followup brain MRI is suggested. Artie English MD Objective Remarks GENERAL: NAD SKIN: Warm and dry. HEAD: Normocephalic.right sided facial palsy; left facial droop EYES: No scleral icterus. No injection or drainage. NECK: Supple, trachea midline. No JVD or lymphadenopathy. CARDIOVASCULAR: Regular rate and rhythm without murmurs, gallops, or rubs. RESPIRATORY: Breath sounds equal bilaterally. No accessory muscle use. GASTROINTESTINAL: Abdomen soft, non-tender, nondistended. MUSCULOSKELETAL: No cyanosis, or edema. 4/5 RUE/RLE; 5/5 left sided Neuro: CN II-XII intact BACK: Nontender without obvious deformity. No CVA tenderness. A/P Problem List: (1) Basilar migraine ICD Code: G43.109 - Migraine with aura, not intractable, without status migrainosus (2) Pineal gland cyst ICD Code: E34.8 - Other specified endocrine disorders (3) Facial droop ICD Code: R29.810 - Facial weakness (4) History of factor V Leiden mutation ICD Code: Z86.2 - Personal history of diseases of the blood and blood-forming organs and certain disorders involving the immune mechanism Assessment and Plan 37 years old with Basilar Migraine vs TIA CT brain/CTA head and neck revealed no acute findings MRI brain showed pineal cyst measures 12 x 15 x 18 mm in size Head/Neck CTA negative Head/Brain MRV without any sinus thrombosis EEG negative 2D echo pending s/p Heparin, Decadron Currently on ASA, Neurontin Holding cyclobenzaprine 5 mg at night/home medication Appreciate input from neurology , Dr. Franco has consulted neurosurgery Tobacco abuse Tobacco counselling cessation provided Nasal cannula to maintain saturations greater than equal to 92% Incentive spirometry while awake Factor V Leiden mutation Unknown type. Patient is currently not on any antiplatelet or anticoagulation. Hematology consulted and appreciate input Hyperlipidemia Continue with Statin Prophylaxis -GI -famotidine -DVT -SCD/IV heparin Transfer to Med/Surg Gerardo Liu MD Jul 30, 2017 12:15
[2017-07-30] MEDS: ACETAMINOPHEN/HYDROcodone 325 MG/5 MG TAB PO PRN ×2 (12:40→21:28)
[2017-07-30] MEDS: GABAPENTIN 300 MG CAP PO SCH ×2 (12:40→21:28)
[2017-07-30 14:22] LABS: FREE T4 1.16 NG/DL (0.76-1.46)
[2017-07-30] MEDS: ATORVASTATIN 10 MG TAB PO SCH (21:28)
[2017-07-31] VITALS (9 sets, daily range): BP systolic 97–115; BP diastolic 55–60; PULSE 52–73; RESP 18; TEMP 97.6–98.4; O2SAT 94–97
[2017-07-31] MEDS: CHLORHEXIDINE GLUCONATE 2 % 1 PACK (2 CLOTHS) TOP SCH (04:00)
[2017-07-31] MEDS: GABAPENTIN 300 MG CAP PO SCH ×3 (05:55→22:25)
[2017-07-31] MEDS: ACETAMINOPHEN/HYDROcodone 325 MG/5 MG TAB PO PRN ×3 (05:55→22:27)
[2017-07-31] MEDS: ARTIFICIAL TEARS OPTH SOLN 15 ML BTL EACH EYE SCH ×3 (09:00→17:07)
[2017-07-31] MEDS: FAMOTIDINE 20 MG TAB PO SCH ×2 (09:00→22:27)
[2017-07-31] MEDS: SODIUM CHLORIDE 0.9% FLUSH 10 ML FLUSH IV FLUSH SCH ×2 (09:11→22:28)
[2017-07-31] MEDS: ASPIRIN 325 MG TAB PO SCH (09:12)
--- NOTE | 2017-07-31 15:15 | HHI.PR ---
Subjective Remarks Patient seen earlier this morning. She reports the symptoms have not improved. Still having intermittent episodes of right sided facial tightness. Still complaining of head fullness. No change. Objective Vitals Vital Signs Date Time Temp Pulse Resp B/P (MAP) Pulse Ox O2 Delivery O2 Flow Rate FiO2 07/31/17 12:00 98.0 62 18 105/60 (75) 96 07/31/17 11:08 94 21 07/31/17 08:00 97.9 52 18 109/58 (75) 97 07/31/17 05:00 97.6 64 18 107/55 (72) 97 07/31/17 01:00 98.1 56 18 97/56 (70) 96 07/31/17 00:34 60 07/30/17 20:23 97.7 83 16 121/65 (83) 97 07/30/17 16:00 47 I/O 07/30/17 07/30/17 07/30/17 07/31/17 07/31/17 07/31/17 07:00 15:00 23:00 07:00 15:00 23:00 Intake Total 240 ml Balance 240 ml Intake Oral 240 ml # Voids 3 Result Diagram: 07/29/17 0740 07/29/17 0740 Objective Remarks GENERAL: This is a well-nourished, well-developed patient, in no apparent distress. CARDIOVASCULAR: Normal rate and regular rhythm without murmurs, gallops, or rubs. RESPIRATORY: Good respiratory efforts. Breath sounds equal and clear to auscultation bilaterally. GASTROINTESTINAL: Abdomen soft, non-tender, non-distended. Normal active bowel sounds MUSCULOSKELETAL: Extremities without cyanosis, or edema. NEURO: Alert & Oriented x4 to person, place, time, situation. Moves all ext x4. Oddly as the interview progressed, the patient's right side of the face will visibly tighten up and loosen up intermittently. PSYCH: Appropriate mood and affect. Tearful about her current condition A/P Problem List: (1) Basilar migraine ICD Code: G43.109 - Migraine with aura, not intractable, without status migrainosus (2) Pineal gland cyst ICD Code: E34.8 - Other specified endocrine disorders (3) Facial droop ICD Code: R29.810 - Facial weakness (4) History of factor V Leiden mutation ICD Code: Z86.2 - Personal history of diseases of the blood and blood-forming organs and certain disorders involving the immune mechanism Assessment and Plan 37 years old with Basilar Migraine vs TIA CT brain/CTA head and neck revealed no acute findings MRI brain showed pineal cyst measures 12 x 15 x 18 mm in size Head/Neck CTA negative Head/Brain MRV without any sinus thrombosis EEG negative 2D echo pending s/p Heparin, Decadron Currently on ASA, Neurontin dose increased yesterday. Holding cyclobenzaprine 5 mg at night/home medication Appreciate further input from neurology, neurosurgery evaluated the patient no surgical intervention regarding the pineal cyst. May have follow-up MRI in about 6 months. Tobacco abuse Tobacco counselling cessation provided Nasal cannula to maintain saturations greater than equal to 92% Incentive spirometry while awake Factor V Leiden mutation Hematology consulted and appreciate input Patient is on Aspirin therapy Hyperlipidemia Continue with Statin Prophylaxis -GI -famotidine -DVT -SCDs Discharge Planning Awaiting 2D echo. Further input from neurology is appreciated. If no further workup indicated inpatient and she remained stable, will consider discharging home in the morning to follow-up outpatient. Nazia Hill MD Jul 31, 2017 15:15
--- NOTE | 2017-07-31 19:12 | ECHRPT ---
Indication: cva/tia CONCLUSIONS Normal left ventricular size. Wall thickness is normal. The left ventricular systolic function is normal with an estimated ejection fraction in the range of 55-60%. Possible small PFO. BP: / HR: Rhythm: MEASUREMENTS (Male / Female) Normal Values Technical Quality: 2D ECHO LV Diastolic Diameter PLAX 4.7 cm 4.2 - 5.9 / 3.9 - 5.3 cm LV Systolic Diameter PLAX 3.4 cm IVS Diastolic Thickness 1.0 cm 0.6 - 1.0 / 0.6 - 0.9 cm LVPW Diastolic Thickness 0.6 cm 0.6 - 1.0 / 0.6 - 0.9 cm LV Relative Wall Thickness 0.3 RV Internal Dim ED PLAX 1.8 cm LA Systolic Diameter LX 3.4 cm 3.0 - 4.0 / 2.7 - 3.8 cm DOPPLER Mitral E Point Velocity 75.5 cm/s Mitral A Point Velocity 52.3 cm/s Mitral E to A Ratio 1.4 TR Peak Velocity 231.0 cm/s TR Peak Gradient 21.3 mmHg FINDINGS LEFT VENTRICLE Normal left ventricular size. Wall thickness is normal. The left ventricular systolic function is normal with an estimated ejection fraction in the range of 55-60%. RIGHT VENTRICLE Normal right ventricular size and systolic function. LEFT ATRIUM The left atrial size is normal. RIGHT ATRIUM The right atrial size is normal. AORTA The aortic root and proximal ascending aorta are normal in size on limited imaging. MITRAL VALVE Structurally normal mitral valve. No mitral valve stenosis or regurgitation. AORTIC VALVE Trileaflet aortic valve. No aortic valve stenosis or regurgitation. TRICUSPID VALVE Structurally normal tricuspid valve. No tricuspid valve stenosis or regurgitation. PULMONARY VALVE The pulmonary valve is not well visualized. VESSELS The inferior vena cava is normal in size. PERICARDIUM No pericardial effusion. OTHER FINDINGS Possible small PFO. Yoselyn Spangler MD, FACC (Electronically Signed) Final Date:31 July 2017 19:11
--- NOTE | 2017-07-31 20:52 | HHI.PR ---
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 Plan increase dose of gabapentin to 600 mg tid. If improved ok from neurologic standpoint to dc home tomorrow on gabapentin 600 mg tid and asa 325 mg daily Diagnosis/Plan: Subjective Subjective Comments pt has had several episodes of left face weakness today without right sided weakness and feels the episodes are less pronounced and shorter in duration. Active Medications Current Medications Medications (Trade) Dose Ordered Sig/Lora Route Start Time Stop Time Status Last Admin (Tylenol) 650 mg Q6H PRN PO 07/28/17 18:00 (Banks 5-325 Mg) 1 tab Q4H PRN PO 07/28/17 18:00 07/31/17 14:12 (Morphine Inj) 2 mg Q2H PRN IV PUSH 07/28/17 18:00 (Tears Naturale Opth Soln) 1 drop TID EACH EYE 07/28/17 18:00 07/30/17 12:40 (Zofran Inj) 4 mg Q6H PRN IV PUSH 07/28/17 18:00 (Albuterol Neb) 2.5 mg Q2HR NEB PRN INH 07/28/17 18:00 07/30/17 11:35 ([facility]) 1 [id number] XX 07/28/17 18:00 07/28/17 21:00 (Chlorhexidine 2% Cloth) 3 pack Taper DAILY@04 TOP 07/29/17 04:00 07/25/18 03:59 (Chlorhexidine 2% Cloth) 3 pack UNSCH PRN TOP 07/28/17 18:00 (Milk Of Magnesia Liq) 30 ml Q12H PRN PO 07/28/17 18:00 (Trandate Inj) 10 mg Q2H PRN IV PUSH 07/28/17 18:00 (Lipitor) 10 mg HS PO 07/28/17 21:00 07/30/17 21:28 (NS Flush) 2 ml BID IV FLUSH 07/28/17 21:00 07/31/17 09:11 (NS Flush) 2 ml UNSCH PRN IV FLUSH 07/28/17 19:30 (D50w (Vial) Inj) 50 ml UNSCH PRN IV PUSH 07/28/17 19:30 (Glucagon Inj) 1 mg UNSCH PRN OTHER 4/27/18 19:30 (Pepcid) 20 mg BID PO 07/29/17 21:00 07/31/17 09:00 (Neurontin) 300 mg Q8HR PO 07/30/17 14:00 07/31/17 14:12 (Aspirin) 325 mg DAILY PO 07/30/17 09:00 07/31/17 09:12 Allergies Allergies Coded Allergies No Known Allergies (Unverified07/28/17) Exam I&O / VS Vital Signs Date Time Temp Pulse Resp B/P (MAP) Pulse Ox O2 Delivery O2 Flow Rate FiO2 07/31/17 16:00 98.4 65 18 101/57 (72) 95 07/31/17 12:00 98.0 62 18 105/60 (75) 96 07/31/17 11:08 94 21 07/31/17 08:00 97.9 52 18 109/58 (75) 97 07/31/17 05:00 97.6 64 18 107/55 (72) 97 07/31/17 01:00 98.1 56 18 97/56 (70) 96 07/31/17 00:34 60 Exam Comments alert, speech normal Cn normal--except mild left facial weakness MOTOR----5/5 BUE and BLE. no drift. Cole Franco MD PhD Jul 31, 2017 20:52
[2017-07-31] MEDS: ATORVASTATIN 10 MG TAB PO SCH (22:28)
[2017-08-01] VITALS: BP 117/62; PULSE 62; RESP 18; TEMP 98; O2SAT 95
[2017-08-01 04:00] VITALS: BP 107/58; PULSE 54; PULSE 68; RESP 18; TEMP 97.9; O2SAT 96
[2017-08-01] MEDS: CHLORHEXIDINE GLUCONATE 2 % 1 PACK (2 CLOTHS) TOP SCH (04:00)
[2017-08-01] MEDS: GABAPENTIN 300 MG CAP PO SCH ×2 (07:05→13:23)
[2017-08-01 08:00] VITALS: BP 97/60; PULSE 62; RESP 16; TEMP 98; O2SAT 96
[2017-08-01 08:19] VITALS: O2SAT 95
[2017-08-01] MEDS: ARTIFICIAL TEARS OPTH SOLN 15 ML BTL EACH EYE SCH ×3 (08:38→16:56)
[2017-08-01] MEDS: SODIUM CHLORIDE 0.9% FLUSH 10 ML FLUSH IV FLUSH SCH (08:41)
[2017-08-01] MEDS: FAMOTIDINE 20 MG TAB PO SCH (08:41)
[2017-08-01] MEDS: ASPIRIN 325 MG TAB PO SCH (08:41)
[2017-08-01 12:00] VITALS: BP 120/58; PULSE 78; RESP 16; TEMP 98; O2SAT 97
[2017-08-01 14:57] LABS: CARDIOLIPIN IGG AB <9.4 GPL; CARDIOLIPIN IGM AB <9.4 MPL
[2017-08-01] MEDS ORDERED: ASA325 PO (16:31)
[2017-08-01] MEDS ORDERED: NEUR300C PO (16:31)
[2017-08-01] MEDS ORDERED: LIPI10TA PO (16:31)
--- NOTE | 2017-08-01 18:45 | HHI.DS ---
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 Date of admission 07/28/2017. This is a transfer from [facility]. Past history includes pineal cyst and factor V Leiden. She is recently started on cyclobenzaprine 5 mg at night due to right -sided weakness and treat muscle spasms. She originally presented to [facility] with acute onset after waking up this morning of "right-sided weakness along with dizziness, vision changes involving the left lateral vision clements and facial droop. Also complaining of generalized by frontal headaches and neck stiffness. Denies chest pain, abdominal pain, nausea or vomiting. BMP/CBC and coags within normal limits at [facility]. Document the patient presented with intermittent right facial motor dysfunction spasms. Exam revealed intermittent inability to open right eye alternating with normal facial motor exam. CT brain at [facility] revealed pineal cyst 10 mm with no acute findings. MRI was not available for further evaluation plans are made to transfer the patient [facility] CBC/BMP: 07/29/17 0740 07/29/17 0740 Significant Findings Laboratory Tests Test 07/29/17 21:10 07/30/17 02:00 07/30/17 07:09 07/30/17 10:01 Activated Partial Thromboplast Time 44.0 SEC (24.3-30.1) 30.2 SEC (24.3-30.1) Thyroid Stimulating Hormone 3rd Gen 0.272 uIU/ML (0.358-3.740) PE at Discharge GENERAL: This is a well-nourished, well-developed patient, in no apparent distress. CARDIOVASCULAR: Normal rate and regular rhythm without murmurs, gallops, or rubs. RESPIRATORY: Good respiratory efforts. Breath sounds equal and clear to auscultation bilaterally. GASTROINTESTINAL: Abdomen soft, non-tender, non-distended. Normal active bowel sounds MUSCULOSKELETAL: Extremities without cyanosis, or edema. NEURO: Alert & Oriented x4 to person, place, time, situation. Moves all ext x4. Oddly as the interview progressed, the patient's right side of the face will visibly tighten up and loosen up intermittently. PSYCH: Appropriate mood and affect. Tearful about her current condition Hospital Course Mrs. Bryson is a 37-year-old female. She was admitted secondary to right facial droop. This finding is intermittent. This is not Berman's palsy, given its lack of persistence. Concerns were that it was related to a pineal cyst. Etiology is difficult to correlate with the pineal cyst. Viral neuritis could also cause similar symptom. Workup for signs of infection or stroke are negative. Workup included an echocardiogram which showed a mild POF. Patient is medically stable and cleared for discharge to home. She will follow up with neurology as an outpatient. Pt Condition on Discharge: Stable Discharge Disposition: Discharge Home Discharge Time: <= 30 minutes Discharge Instructions DIET: Follow Instructions for: As Tolerated, No Restrictions Activities you can perform: Regular-No Restrictions Follow up Referrals: Neurology - 2 Weeks with Cole Franco MD PhD PCP Follow-up - 2 Weeks New Medications: Aspirin (Px Aspirin) 325 Mg Tab 325 MG PO DAILY for Blood Clot Prevention, #30 TAB Atorvastatin (Lipitor) 10 Mg Tab 10 MG PO HS for Cholesterol Management, #30 TAB Gabapentin (Neurontin) 300 Mg Cap 600 MG PO HS for Neurological Change, #30 CAP Osorio Doe MD August 01, 2017 18:45
--- NOTE | 2017-08-02 00:01 | PD.ONC.PN ---
Subjective Subjective Remarks Resting comfortably in bedside chair. She is looking forward to going home. Objective Data Date Time Temp Pulse Resp B/P (MAP) Pulse Ox O2 Delivery O2 Flow Rate FiO2 08/01/17 12:00 98.0 78 16 120/58 (78) 97 08/01/17 08:19 95 21 08/01/17 08:00 98.0 62 16 97/60 (72) 96 08/01/17 04:00 97.9 68 18 107/58 (74) 96 08/01/17 04:00 54 Result Diagram: 07/29/17 0740 07/29/17 0740 Objective Remarks GENERAL: Well-nourished, well-developed patient. SKIN: Warm and dry. HEAD: Normocephalic. EYES: No scleral icterus. No injection or drainage. NECK: Supple, trachea midline. No JVD or lymphadenopathy. LYMPHATIC: No adenopathy. CARDIOVASCULAR: Regular rate and rhythm without murmurs. RESPIRATORY: No accessory muscle use. GASTROINTESTINAL: Abdomen soft, non-tender, nondistended. EXTREMITIES: No cyanosis, or edema. MUSCULOSKELETAL: Adequate muscle tone. NEUROLOGICAL: No obvious focal deficit. Awake, alert, and oriented x3. PSYCHIATRIC: Appropriate mood and affect; insight and judgment normal. Assessment/Plan Assessment 1. Hypercoaguable work up: Results pending. Will have follow up in oncology clinic to discuss results. 2. Vitamin B12 deficiency: continue vitamin replacement in outpatient setting Susanna Sanchez MD August 02, 2017 00:01
[2017-08-02 22:17] LABS: PROTEIN C ACTIVITY 116 % (70 - 150); PROTEIN S ACTIVITY 98 % (50 - 160)
[2017-08-03 07:49] LABS: DRVVT 1:1 MIX CORRECTED (CORRECTED); DRVVT CONFIRM POSITIVE (NEGATIVE); HEXAGONAL PHASE CONFIRM ND (NEGATIVE)
== END 2017-08-01 17:26 | disposition home or self-care (01) | DRG 103 ==
LOC: N03A 16:46 → N03B 20:24 → N05B 07-30 14:23
PROVIDERS: ADMIT Hospitalist; ATTEND Hospitalist
DX: G43.109 Migraine with aura, not intractable, without status migrainosus (principal); D68.51 Activated protein C resistance; E34.8 Other specified endocrine disorders; R29.810 Facial weakness; E53.8 Deficiency of other specified B group vitamins; E78.5 Hyperlipidemia, unspecified; Z72.0 Tobacco use
CPT/HCPCS: 70450; 70496; 70498; 70546; 70553; 80048; 80053; 80061; 81240; 81241; 82550; 82607; 82948; 83036; 83735; 84100; 84439; 84443; 84484; 84702; 85007; 85025; 85027; 85300; 85303; 85306; 85384; 85597; 85610; 85613; 85730; 86147; 86850; 86900; 86901; 93306; 94150; 94664; 95819; A9579; J1100; J1644; J7030; J7613; Q9967